=== PATIENT | female | born 1990 | race Caucasian/White ===

== ENCOUNTER 2022-09-14 01:35 | Outpatient (CLI) | payer BC, SELFPAY ==
[2022-09-14 08:50] LABS: HCG Quant, Pregnancy < 1 mIU/mL (1-3)
== END 2022-09-14 01:36 | disposition home or self-care (01) ==
LOC: LBO 01:35
PROVIDERS: Visit Provider Obstetrics & Gynecology
DX: N97.9 Female infertility, unspecified (principal); Z32.00 Encounter for pregnancy test, result unknown
CPT/HCPCS: 36415; 84702

== ENCOUNTER 2023-03-27 07:27 | Outpatient (CLI) | payer BC, SELFPAY ==
[2023-04-01 09:35] LABS: Estradiol, Mass Spectrometry 29 pg/mL
== END 2023-03-27 07:28 | disposition home or self-care (01) ==
PROVIDERS: Visit Provider Obstetrics & Gynecology
DX: N97.9 Female infertility, unspecified (principal)
CPT/HCPCS: 36415; 82670; 82679

== ENCOUNTER 2023-07-03 14:51 | Outpatient (CLI) | payer BC, SELFPAY ==
[2023-07-03 12:46] LABS: Abs Immature Grans 0.03 10^3/uL (0.0-0.06); Absolute Basophil Count 0.04 10^3/uL (0.0-0.2); Absolute Eosinophil Count 0.27 10^3/uL (0.0-0.7); Absolute Lymphocyte Count 2.95 10^3/uL (1.2-3.4); Absolute Monocyte Count 0.43 10^3/uL (0.1-0.8); Absolute Neutrophil Count 6.52 10^3/uL (1.2-6.7); Basophils % 0.4; Eosinophils % 2.6; HCT 39.6 % (36.0-46.0); HGB 12.9 g/dL (11.2-15.7); Immature Grans % 0.3; Lymphocytes % 28.8; MCH 27.2 pg (27.0-33.0); MCHC 32.6 % (32.0-36.0); MCV 83 fL (80-95); MPV 10.9 fL (8.0-11.0); Monocytes % 4.2; Neutrophils % 63.7; Platelet Count 304 10^3/uL (130-400); RBC 4.75 10^6/uL (3.93-5.22); RDW 13.2 % (11.7-14.6); RDW-SD 40.6 fL; WBC 10.24 10^3/uL (4.4-10.8)
[2023-07-03 12:56] LABS: Hemoglobin A1C 5.5 % (<5.7)
[2023-07-03 13:15] LABS: ALT 21 U/L (14-59); AST 18 U/L (15-37); Albumin 3.4 g/dL (3.4-5.0); Alkaline Phosphatase 69 U/L (46-116); BUN 15 mg/dL (7-18); Bilirubin, Total 0.1 mg/dL (0.2-1.0); CREATININE 0.8 mg/dL (0.55-1.02); Calcium 9.3 mg/dL (8.5-10.1); Calculated LDL 133 mg/dL (<100); Chloride 103 mmol/L (98-107); Cholesterol 223 mg/dL (<200); Estimated GFR 98.48 (mL/min/1.73m2); Ferritin 46 ng/mL (8-252); Glucose 118 mg/dL (74-106); HDL Cholesterol 44 mg/dL (40-60); Potassium 3.6 mmol/L (3.5-5.1); Sodium 136 mmol/L (136-145); TSH (W/Ref FT4) 1.42 uIU/mL (0.36-3.74); Total Protein 7.6 g/dL (6.4-8.2); Triglyceride 232 mg/dL (<150)
[2023-07-03 22:58] LABS: CRP, High Sensitivity >15.00 mg/L (See Note)
[2023-07-04 11:32] LABS: Lab Add On Test DONE
[2023-07-04 12:02] LABS: C-Reactive Protein 1.87 mg/dL (0.0-0.3)
== END 2023-07-03 14:52 | disposition home or self-care (01) ==
LOC: LBO 14:53
PROVIDERS: PCP Nurse Practitioner Family; Visit Provider Nurse Practitioner Family
DX: Z76.89 Persons encountering health services in other specified circumstances (principal); Z87.2 Personal history of diseases of the skin and subcutaneous tissue
CPT/HCPCS: 36415; 80053; 80061; 86141; 82728; 83036; 84443; 85025; 86140

== ENCOUNTER 2024-01-06 12:53 | Outpatient (CLI) | payer BC, SELFPAY ==
[2024-01-06 12:43] LABS: C-Reactive Protein 1.24 mg/dL (<or=0.5)
== END 2024-01-06 12:54 | disposition home or self-care (01) ==
LOC: LBO 12:55
PROVIDERS: PCP Nurse Practitioner Family; Visit Provider Nurse Practitioner Family
DX: Z87.2 Personal history of diseases of the skin and subcutaneous tissue (principal)
CPT/HCPCS: 36415; 86140

== ENCOUNTER 2024-03-18 01:47 | Outpatient (CLI) | payer BC, SELFPAY ==
[2024-03-18 15:43] LABS: C-Reactive Protein 1.04 mg/dL (<or=0.5)
== END 2024-03-18 01:48 | disposition home or self-care (01) ==
PROVIDERS: PCP Nurse Practitioner Family; Visit Provider Nurse Practitioner Family
DX: Z87.2 Personal history of diseases of the skin and subcutaneous tissue (principal)
CPT/HCPCS: 36415; 86140

== ENCOUNTER 2024-07-17 11:59 | Outpatient (CLI) | payer BC, SELFPAY ==
[2024-07-17 11:28] LABS: Abs Immature Grans 0.02 10^3/uL (0.0-0.06); Absolute Basophil Count 0.06 10^3/uL (0.0-0.2); Absolute Eosinophil Count 0.22 10^3/uL (0.0-0.7); Absolute Lymphocyte Count 3.44 10^3/uL (1.2-3.4); Absolute Monocyte Count 0.58 10^3/uL (0.1-0.8); Absolute Neutrophil Count 5.45 10^3/uL (1.2-6.7); Basophils % 0.6 %; Eosinophils % 2.3 %; HCT 42.8 % (36.0-46.0); HGB 13.7 g/dL (11.2-15.7); Immature Grans % 0.2 %; Lymphocytes % 35.2 %; MCH 27.5 pg (27.0-33.0); MCV 86 fL (80-95); MPV 10.8 fL (8.0-11.0); Monocytes % 5.9 %; Neutrophils % 55.8 %; Platelet Count 295 10^3/uL (130-400); RBC 4.98 10^6/uL (3.93-5.22); RDW 12.9 % (11.7-14.6); RDW-SD 40.4 fL; WBC 9.77 10^3/uL (4.4-10.8)
[2024-07-17 11:59] LABS: D-Dimer 332 ng/mlFEU (<500)
[2024-07-17 12:09] LABS: ALT 19 U/L (14-59); AST 19 U/L (15-37); Albumin 3.4 g/dL (3.4-5.0); Alkaline Phosphatase 68 U/L (46-116); Anion Gap 8.4 mmol/L (3-11); BUN 20 mg/dL (7-18); C-Reactive Protein 1.54 mg/dL (<or=0.5); CO2 25.6 mmol/L (21.0-32.0); CREATININE 0.8 mg/dL (0.55-1.02); Calcium 9.5 mg/dL (8.5-10.1); Chloride 105 mmol/L (98-107); Estimated GFR 97.87 (mL/min/1.73m2); Glucose 84 mg/dL (74-106); Potassium 3.8 mmol/L (3.5-5.1); Sodium 139 mmol/L (136-145); Total Protein 7.9 g/dL (6.4-8.2)
== END 2024-07-17 12:00 | disposition home or self-care (01) ==
LOC: LBO 12:00
PROVIDERS: PCP Nurse Practitioner Family; Visit Provider Nurse Practitioner Family
DX: R05.9 Cough, unspecified (principal); J45.31 Mild persistent asthma with (acute) exacerbation
CPT/HCPCS: 36415; 80053; 85025; 85379; 86140

== ENCOUNTER 2024-07-17 12:04 | Outpatient (CLI) | payer BC, SELFPAY ==
--- NOTE | 2024-07-17 11:15 | DI.RAD_ITS ---
Exam(s) XR CHEST 2V PA LATERAL EXAM: XR CHEST 2V PA LATERAL CLINICAL HISTORY: cough, eval for pneumonia,r05.9. TECHNIQUE: 2D digital imaging was performed. COMPARISON: No exams were available for comparison FINDINGS: 2 views: Heart size is normal. The mediastinum is not widened. Lungs are clear. No infiltrates nor pleural effusions. IMPRESSION: No acute pulmonary findings. DATA REPOSITORY: RADIATION DOSE DELIVERED:
== END 2024-07-17 12:24 ==
LOC: DI 12:04
PROVIDERS: PCP Nurse Practitioner Family; Visit Provider Nurse Practitioner Family
DX: R05.9 Cough, unspecified (principal)
CPT/HCPCS: 71046

== ENCOUNTER 2024-09-29 17:09 | Outpatient (REF) | payer BC, SELFPAY ==
[2024-09-29 15:54] LABS: Abs Immature Grans 0.01 10^3/uL (0.0-0.06); Absolute Basophil Count 0.04 10^3/uL (0.0-0.2); Absolute Eosinophil Count 0.16 10^3/uL (0.0-0.7); Absolute Lymphocyte Count 2.55 10^3/uL (1.2-3.4); Absolute Monocyte Count 0.38 10^3/uL (0.1-0.8); Basophils % 0.5 %; HCT 40.8 % (36.0-46.0); HGB 13.1 g/dL (11.2-15.7); Immature Grans % 0.1 %; Lymphocytes % 32.1 %; MCH 27.3 pg (27.0-33.0); MCHC 32.1 % (32.0-36.0); MCV 85 fL (80-95); MPV 11.4 fL (8.0-11.0); Monocytes % 4.8 %; Neutrophils % 60.5 %; Platelet Count 261 10^3/uL (130-400); RBC 4.79 10^6/uL (3.93-5.22); RDW 12.4 % (11.7-14.6); RDW-SD 38.1 fL; WBC 7.94 10^3/uL (4.4-10.8)
[2024-09-29 16:16] LABS: ALT 24 U/L (14-59); AST 23 U/L (15-37); Albumin 3.7 g/dL (3.4-5.0); Alkaline Phosphatase 76 U/L (46-116); Anion Gap 6.8 mmol/L (3-11); BUN 14 mg/dL (7-18); Bilirubin, Total 0.23 mg/dL (0.2-1.0); C-Reactive Protein 1.51 mg/dL (<or=0.5); CO2 28.2 mmol/L (21.0-32.0); CREATININE 0.8 mg/dL (0.55-1.02); Calcium 9.1 mg/dL (8.5-10.1); Chloride 105 mmol/L (98-107); Estimated GFR 97.87 (mL/min/1.73m2); Glucose 109 mg/dL (74-106); Potassium 4.5 mmol/L (3.5-5.1); Sodium 140 mmol/L (136-145); TSH (W/Ref FT4) 1.53 uIU/mL (0.36-3.74); Total Protein 7.2 g/dL (6.4-8.2)
== END 2024-09-29 17:10 | disposition home or self-care (01) ==
LOC: NCHCN 17:09
PROVIDERS: Visit Provider Family Medicine
DX: R53.83 Other fatigue (principal)
CPT/HCPCS: 80053; 84443; 85025; 86140

== ENCOUNTER 2024-09-30 03:24 | Outpatient (CLI) | payer BC, SELFPAY ==
--- NOTE | 2024-09-30 | DI.RAD_ITS ---
Exam(s) XR CHEST 2V PA LATERAL EXAM: XR CHEST 2V PA LATERAL CLINICAL HISTORY: COUGH, R05.9 TECHNIQUE: 2D digital imaging was performed of the chest. Two images were obtained. PA and lateral views were obtained. COMPARISON: CR XR CHEST 2V PA LATERAL from 07/17/2024 FINDINGS: MEDIASTINUM: Normal. HEART: Normal. PULMONARY VASCULATURE: Normal. LUNGS: Clear. PLEURAL SPACE: No pleural effusion or pneumothorax. BONE:Within normal limits for the patient's age. OTHER FINDINGS:Normal. IMPRESSION: No acute pulmonary findings. DATA REPOSITORY: RADIATION DOSE DELIVERED:
== END 2024-09-30 03:44 ==
PROVIDERS: PCP Nurse Practitioner Family; Visit Provider Family Medicine
DX: R05.9 Cough, unspecified (principal)
CPT/HCPCS: 71046

== ENCOUNTER 2024-10-22 04:51 | Outpatient (CLI) | payer BC, SELFPAY ==
--- NOTE | 2024-10-27 16:15 | W.PFT ---
Date of service: 10/22/24 Time of Service: 12:59 Pulmonary Function Test Result Indications: Cough Interpretation Spirometry: No airflow limitation. Lung Volumes: Normal lung volumes Diffusion Capacity: Normal diffusion Airway Pressure: Normal airways resistance Impression Normal pulmonary function testing Clinical Correlation therefore is recommended.
== END 2024-10-22 04:52 | disposition home or self-care (01) ==
LOC: RT 04:51
PROVIDERS: PCP Nurse Practitioner Family; Visit Provider Student in an Organized Health Care Education/Training Program
DX: R05.9 Cough, unspecified (principal)
CPT/HCPCS: 94726; 94729; 94010

== ENCOUNTER 2024-12-31 18:18 | Outpatient (REF) | payer BC, SELFPAY ==
[2024-12-31 17:31] LABS: Abs Immature Grans 0.02 10^3/uL (0.0-0.06); Absolute Basophil Count 0.03 10^3/uL (0.0-0.2); Absolute Eosinophil Count 0.11 10^3/uL (0.0-0.7); Absolute Lymphocyte Count 2.75 10^3/uL (1.2-3.4); Absolute Monocyte Count 0.37 10^3/uL (0.1-0.8); Basophils % 0.4 %; Eosinophils % 1.6 %; HGB 13.4 g/dL (11.2-15.7); Immature Grans % 0.3 %; Lymphocytes % 38.8 %; MCH 27.6 pg (27.0-33.0); MCHC 31.9 % (32.0-36.0); MCV 86 fL (80-95); MPV 12.3 fL (8.0-11.0); Monocytes % 5.2 %; Neutrophils % 53.7 %; Platelet Count 255 10^3/uL (130-400); RBC 4.86 10^6/uL (3.93-5.22); RDW 12.9 % (11.7-14.6); RDW-SD 40.6 fL; WBC 7.08 10^3/uL (4.4-10.8)
[2024-12-31 17:51] LABS: Anion Gap 10.1 mmol/L (3-11); BUN 16 mg/dL (7-18); CO2 24.9 mmol/L (21.0-32.0); CREATININE 0.8 mg/dL (0.55-1.02); Calculated LDL 99 mg/dL (<100); Chloride 106 mmol/L (98-107); Cholesterol 165 mg/dL (<200); Estimated GFR 97.87 (mL/min/1.73m2); Glucose 78 mg/dL (74-106); HDL Cholesterol 48 mg/dL (>or=50); Potassium 4.2 mmol/L (3.5-5.1); Sodium 141 mmol/L (136-145); Triglyceride 91 mg/dL (<150)
[2024-12-31 18:03] LABS: C-Reactive Protein 0.87 mg/dL (<or=0.5)
[2025-01-06 14:59] LABS: Apolipoprotein B, Serum 95 mg/dL (48-124); Beta VLDL Cholesterol Not Detected mg/dL (<15); Beta VLDL Triglycerides Not Detected mg/dL (<15); Cholesterol, Total, CDC 164 mg/dL; Chylomicron Cholesterol Not Detected; Chylomicron Triglycerides Not Detected; HDL Cholesterol, CDC 41 mg/dL (>=50); LDL Cholesterol 84 mg/dL; LDL Triglycerides 52 mg/dL (<=50); Lp(a) Cholesterol 18 mg/dL (<5); LpX Not detected; Triglycerides, CDC 106 mg/dL; VLDL Cholesterol 21 mg/dL (<30); VLDL Triglycerides 32 mg/dL (<120)
== END 2024-12-31 18:19 | disposition home or self-care (01) ==
LOC: NCHCN 18:18
PROVIDERS: PCP Nurse Practitioner Family; Visit Provider Family Medicine
DX: E66.9 Obesity, unspecified (principal); Z68.26 Body mass index [BMI] 26.0-26.9, adult; Z13.220 Encounter for screening for lipoid disorders; K20.0 Eosinophilic esophagitis
CPT/HCPCS: 80048; 80061; 82172; 82664; 85025; 86140

== ENCOUNTER 2025-07-19 07:08 | Emergency (ER) | payer BC, SELFPAY ==
[2025-07-19 07:12] VITALS: BP 156/98; PULSE 70; RESP 16; TEMP 36.6; O2SAT 99
--- NOTE | 2025-07-19 07:17 | W.ED.GENAD ---
Discharge Plan Disposition Patient Disposition: Home Discharge Details Clinical Impression: Abrasion of scalp, Mild TBI (traumatic brain injury) Primary Care Provider: Vanessa Urban ED Provider: Vargas Washington Home Meds and New Rx's Prescriptions: Continued Dupixent Pen 300 mg/2 mL pen injector 300 mg subcut QWEEK albuterol sulfate 2.5 mg /3 mL (0.083 %) solution for nebulization 2.5 mg inhalation Q6H semaglutide (weight loss) 1.7 mg/0.75 mL pen injector 1.7 mg subcut QWEEK Qty: 3 0RF Rx Instructions: Week 13 through week 16: 1.7 mg once weekly desogestrel-ethinyl estradiol [Isibloom] 0.15-0.03 mg tablet 1 tab PO DAILY Qty: 168 3RF Rx Instructions: Takes continuously Discharge Instructions Additional Instructions: You were seen in the emergency department for your head strike. Your CAT scan was reassuring against any signs of bleeding in your head. As we discussed please gradually resume your normal activities. If you begin vomiting and do not stop please return to the emergency department. Please follow-up as needed next week with your primary care provider. For your pain please take medications as follows: 1. Take acetaminophen (Tylenol), 1,000 mg (two 500 mg tabs) every 6 hours [2. Take ibuprofen (Advil), 400 mg every 6 hours.] Discharge Data Discharge Date/Time-TO BE ENTERED AT DEPARTURE: 07/19/25 09:14 HPI General Date/Time Provider Initiated Documentation: 07/19/25 07:17. HPI Narrative: MDM Primary survey intact. Reassuring shock index. On secondary survey patient has superficial healing abrasion to top of head. In setting of her worsening headache patient and I discussed the risks and the benefits of CT head. Patient understood that risks of false positives and downstream testing. Following shared decision making I ordered a CT head to ensure patient did not have any intracranial trauma. She had no cervical spinal tenderness to suggest cervical spinal fracture. No chest strike nor shortness of breath to suggest pneumothorax so I did not order chest x-ray. No fevers to suggest meningitis. No vomiting to suggest encephalitis. Will treat pain with acetaminophen. No significant lacerations to suggest benefit from tetanus immunization. Per Nexus criteria, cervical CT not obtained. The patient had no c-spine midline tenderness, no evidence of intoxication, was AAOx3, had no focal neurological deficits, and no painful distracting injuries. 8:37 AM Patient had reassuring CT head without acute intracranial process. I met the patient. We discussed gradually increasing her activities. We discussed that if any of her activities cause her symptoms of headache or blurry vision that she should discontinue these. We discussed that she should return to the ED if she developed vomiting that did not stop. She understood her return indications and was discharged with an empiric trial of expectant outpatient management. HPI This is a patient with a history of head trauma presenting with symptoms following two incidents of head injury. The patient reports that the first incident occurred on the morning of 07/17/2025 when she was struck by a screen door that did not fully retract, causing significant pain but no loss of consciousness. The second incident occurred later that night when she hit her head on a sharp wooden shelf while standing up quickly, resulting in a bleeding wound that has since scabbed over. Following the second incident, she felt off and experienced significant pain at both injury sites, which was exacerbated by showering. She spent most of the following day resting due to these symptoms. On the night of 07/18/2025, she woke up at 1:00 AM with a severe headache, similar to those she experienced during a previous bout of spinal meningitis. The pain was intense, causing visual disturbances and nausea. She considered seeking emergency care but decided against it, took Advil, and managed to fall back asleep. Upon waking the next morning, she contacted her stepmother, a trauma nurse, who advised her to seek immediate medical attention. The patient reports no vomiting but continues to feel nauseous. She is not currently taking any blood thinners. The patient is on Dupixent, Wegovy, and control. Exam General: Well-appearing in no acute distress speaking in complete sentences. Head: Normocephalic. On the superior aspect of the patient's head there is an approximately 1 x 1 cm healing abrasion. Eye:[Pupils equal, round reactive to light.] Extraocular eye movements intact. No conjunctival injection. No scleral icterus. Ear, nose, mouth, throat: Grossly normal inspection. Normal voice, handling secretions normally. No hemotympanum bilaterally. Neck: Trachea midline. No midline cervical spinal tenderness. Cardiovascular: Well-perfused distal extremities. Respiratory: Nonlabored respiration. Gastrointestinal: Nondistended abdomen. Musculoskeletal: No edema. Moving all 4 extremities spontaneously. Skin: Normal for age and race, grossly normal temperature and turgor. No acute rash. Neurologic: Alert and appropriate, no apparent acute deficits. GCS 15. Psychiatric: Mood and manner are appropriate. Grooming and personal hygiene are appropriate. Related Data Home Medications ?Medication ?Instructions ?Recorded ?Confirmed albuterol sulfate 2.5 mg/3 mL 2.5 mg inhalation Q6H 05/22/23 07/19/25 (0.083 %) solution for nebulization dupilumab 300 mg/2 mL subcutaneous 300 mg subcut QWEEK 06/30/24 07/19/25 pen injector (Dupixent) semaglutide (weight loss) 1.7 1.7 mg (0.75 mL) subcut QWEEK #3 mL 12/25/24 07/19/25 mg/0.75 mL subcutaneous pen injector desogestrel 0.15 mg-ethinyl 1 tab PO DAILY #168 tabs 05/12/25 07/19/25 estradiol 0.03 mg tablet (Isibloom) Previous Rx's ?Medication ?Instructions ?Recorded semaglutide (weight loss) 1.7 1.7 mg (0.75 mL) subcut QWEEK #3 mL 12/25/24 mg/0.75 mL subcutaneous pen injector desogestrel 0.15 mg-ethinyl 1 tab PO DAILY #168 tabs 05/12/25 estradiol 0.03 mg tablet (Isibloom) Allergies Allergy/AdvReac Type Severity Reaction Status Date / Time tacrolimus Allergy Severe Skin Rash Verified 07/19/25 07:16 latex Allergy Hives Verified 07/19/25 07:16 Sulfa (Sulfonamide Allergy Diarrhea Verified 07/19/25 07:16 Antibiotics) bupropion AdvReac Severe Storey-Jose Verified 07/19/25 07:16 Syndrome-Toxic Epidermal Necrolysis Syndrome prednisone AdvReac Severe Psychosis Verified 07/19/25 07:16 diazepam AdvReac Intermediate Nausea Verified 07/19/25 07:16 fluoxetine AdvReac Intermediate Nausea Verified 07/19/25 07:16 Gadolinium-Containing AdvReac Intermediate Nausea Verified 07/19/25 07:16 Contrast Medi mirtazapine AdvReac Intermediate Nausea Verified 07/19/25 07:16 orphenadrine AdvReac Intermediate Nausea Verified 07/19/25 07:16 paroxetine AdvReac Intermediate Nausea Verified 07/19/25 07:16 clopidogrel AdvReac Nausea Verified 07/19/25 07:16 tegaderm Allergy Intermediate Skin Rash Uncoded 07/19/25 07:16 General Stated Complaint: HeadInjury JESS: 3 Course Vital Signs Vital signs: Vital Signs Temperature 36.6 C 07/19/25 07:12 Pulse 70 07/19/25 07:12 Respiratory Rate 16 07/19/25 07:12 Blood Pressure 156/98 H 07/19/25 07:12 Pulse Oximetry 99 07/19/25 07:12 Temperature 36.6 C 07/19/25 07:12 Pulse 70 07/19/25 07:12 Respiratory Rate 16 07/19/25 07:12 Blood Pressure 156/98 H 07/19/25 07:12 Pulse Oximetry 99 07/19/25 07:12 Oxygen Delivery Method Room Air 07/19/25 07:12 Oxygen Flow Rate 0 07/19/25 07:12 PFSH All Active Problems (Updated 07/19/25 @ 07:44 by Vargas Washington MD) Mild TBI (traumatic brain injury) (Acute) Abrasion of scalp (Acute) Cough (Acute) 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) From bupropion PCOS (polycystic ovarian syndrome) (Chronic) Female infertility (Chronic) IBS (irritable bowel syndrome) (Chronic) Obesity (BMI 30-39.9) (Chronic) Eosinophilic esophagitis (Chronic) Dysphagia (Chronic) Asthma (Chronic) Hyperlipidemia (Chronic) Generalized anxiety disorder (Chronic) ADHD (Chronic) Vulvodynia (Chronic) Allergic rhinitis (Chronic) Medical History Major depressive disorder SJS-TEN overlap syndrome (~2012) Surgical History S/P tonsillectomy S/P colonoscopy S/P dilation and curettage Hx of appendectomy Hx of section (01/11/21) Family History Mother No problems noted. Father No problems noted. Sister No problems noted. Sister Substance use disorder Daughter No problems noted. Maternal Grandfather No problems noted. Maternal Grandmother No problems noted. Paternal Grandfather Prostate cancer Paternal Grandmother No problems noted. 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 Pets and animals: Yes Sexually active: Yes Do you think of yourself as: bisexual Current gender identity: female What is your relationship status?: How often do you talk on the phone with friends or family?: three or more times per week How often do you get together with friends or relatives?: three or more times per week Do you belong to any clubs or organized social groups?: yes Panel score (0-1 are the most socially isolated patients): 3 What type of physical activity do you participate in: walking and bicycling Duration: 15-30 minutes/day Frequency: 3-4 times per week Allyssa/Uatsdin: Non congregational Seatbelt use: always Helmet use: Yes Drive intox or ride w/intox 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
[2025-07-19] MEDS: Acetaminophen 500 MG TAB 1000 MG PO (07:45)
--- NOTE | 2025-07-19 08:00 | DI.CT_ITS ---
Exam(s) CT HEAD WO EXAM: CT HEAD WO CLINICAL HISTORY: Head strike. TECHNIQUE: Imaging Protocol: Axial computed tomography images with coronal and sagittal reformatted images were created and reviewed COMPARISON: No exams were available for comparison FINDINGS: Ventricles and Extra axial spaces: Normal in size and morphology for the patient's age. Hemorrhage: None. Cerebral parenchyma: There is a normal bennett-white matter differentiation. Midline shift: None. Brainstem/Cerebellum: Normal. Calvarium: Normal. Visualized Paranasal sinuses/Mastoids: There are mucous retention cysts in the maxillary sinuses bilaterally. Soft Tissues: Unremarkable. IMPRESSION: No acute intracranial process. RADIATION DOSE DELIVERED: 920.03mGy.cm Total DLP DATA REPOSITORY: All CT scans at this facility are submitted to the National Radiology Data Registry (NRDR) Dose Index Registry (DIR) with the [employer] (ACR). RADIATION OPTIMIZATION: All CT scans at this facility use at least one of these dose optimization techniques: automated exposure control; mA and/or kV adjustment per patient size (includes targeted exams where dose is matched to clinical indication); or iterative reconstruction.
== END 2025-07-19 09:14 | disposition home or self-care (01) ==
PROVIDERS: Emergency Provider Emergency Medicine; PCP Nurse Practitioner Family
DX: S00.01XA Abrasion of scalp, initial encounter (principal); S06.890A Other specified intracranial injury without loss of consciousness, initial encounter; E78.5 Hyperlipidemia, unspecified; W22.09XA Striking against other stationary object, initial encounter; Y93.89 Activity, other specified; Y92.018 Other place in single-family (private) house as the place of occurrence of the external cause
CPT/HCPCS: 99284; 70450

== ENCOUNTER 2025-08-29 07:59 | Emergency (ER) | payer BC, SELFPAY ==
[2025-08-29 08:04] VITALS: BP 124/83; PULSE 76; RESP 18; TEMP 35.6; O2SAT 98
--- NOTE | 2025-08-29 08:45 | DI.RAD_ITS ---
Exam(s) XR HAND RT COMPLETE EXAM: XR HAND RT COMPLETE CLINICAL HISTORY: pain swelling 2nd mcp after lifting weights. TECHNIQUE: 2D digital imaging was performed. COMPARISON: No exams were available for comparison FINDINGS: 3 views No evidence of fracture or dislocation nor abnormal soft tissue densities. No osseous lesions nor erosions. No radiopaque foreign bodies. IMPRESSION: No acute osseous findings. DATA REPOSITORY: RADIATION DOSE DELIVERED:
[2025-08-29 09:33] VITALS: BP 135/75; PULSE 77; O2SAT 100
--- NOTE | 2025-08-29 09:42 | DI.VRAD_ITS ---
PROCEDURE INFORMATION: Exam: XR Right Hand Exam date and time: 08/29/2025 9:08 AM Age: 35 years old Clinical indication: Injury or trauma; Other: Pain swelling 2nd mcp after lifting weights; Sprain or strain; Hand; Right TECHNIQUE: Imaging protocol: Radiologic exam of the right hand. Views: 3 or more views. COMPARISON: No relevant prior studies available. FINDINGS: Bones/joints: Normal. Soft tissues: Normal. IMPRESSION: No acute findings. Dictated and Authenticated by: Lorrie Garcia MD. Orderin Remberto Sierra MD
--- NOTE | 2025-08-29 10:33 | ED.GENADUL_ITS ---
Discharge Plan Disposition Patient Disposition: Home Condition: Stable Discharge Details Clinical Impression: Sprain of MCP joint of hand Primary Care Provider: Vanessa Urban ED Provider: Rigo Sr Home Meds and New Rx's Prescriptions: Continued Dupixent Pen 300 mg/2 mL pen injector 300 mg subcut QWEEK albuterol sulfate 2.5 mg /3 mL (0.083 %) solution for nebulization 2.5 mg inhalation Q6H semaglutide (weight loss) 1.7 mg/0.75 mL pen injector 1.7 mg subcut QWEEK Qty: 3 0RF Rx Instructions: Week 13 through week 16: 1.7 mg once weekly desogestrel-ethinyl estradiol [Isibloom] 0.15-0.03 mg tablet 1 tab PO DAILY Qty: 168 3RF Rx Instructions: Takes continuously Discharge Instructions Instructions: Finger Sprain ED Additional Instructions: Please take ibuprofen 600 mg by mouth every 6-8 hours as needed for pain for the next few days. Use splint over the next 1 week. Should pain persist, additional outpatient diagnostic testing and treatment may be necessary. Please follow-up with your primary care physician. Please follow-up with an orthopedic hand specialist. Call for an appointment. Return to the emergency department immediately for any worsening or new concerning symptoms. Stand Alone Forms: Portal Information HPI General Mode of arrival: ambulatory . Date/Time Provider Initiated Documentation: 08/29/25 08:11 . Limitations to Documentation: no limitations . Information obtained by: patient . HPI Narrative: HISTORY OF PRESENT ILLNESS This is a 35-year-old female with a history of Storey-Jose syndrome (SJS) presenting with hand pain. On 08/27/2025, during a bicep workout, she felt an unusual popping sensation in her left hand, 2nd MCP, which was not immediately painful. She continued her exercise regimen, including an elliptical workout, without any noticeable issues. However, she began experiencing significant pain in the same area on 08/28/2025, which has progressively worsened and now radiates up her arm. The pain was severe enough to disrupt her sleep last night. She also reports bruising in the affected area. 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 She attempted to manage the pain with Advil and Tylenol yesterday, but these were ineffective. She took another dose of ibuprofen this morning. She has undergone numerous scans this year, including two chest x-rays and two CT scans, and expresses reluctance to undergo further imaging. The patient also mentions concurrent issues with her rotator cuff and back. Related Data Home Medications ?Medication ?Instructions ?Recorded ?Confirmed albuterol sulfate 2.5 mg/3 mL 2.5 mg inhalation Q6H 08/29/25 (0.083 %) solution for nebulization dupilumab 300 mg/2 mL subcutaneous 300 mg subcut QWEEK 06/30/24 08/29/25 pen injector (Dupixent) semaglutide (weight loss) 1.7 1.7 mg (0.75 mL) subcut QWEEK #3 mL 12/25/24 08/29/25 mg/0.75 mL subcutaneous pen injector desogestrel 0.15 mg-ethinyl 1 tab PO DAILY #168 tabs 0 05/12/25 08/29/25 estradiol 0.03 mg tablet (Isibloom) Previous Rx's ?Medication ?Instructions ?Recorded semaglutide (weight loss) 1.7 1.7 mg (0.75 mL) subcut QWEEK #3 mL 12/25/24 mg/0.75 mL subcutaneous pen injector desogestrel 0.15 mg-ethinyl 1 tab PO DAILY #168 tabs 0 05/12/25 estradiol 0.03 mg tablet (Isibloom) Allergies Allergy/AdvReac Type Severity Reaction Status Date / Time tacrolimus Allergy Severe Skin Rash Verified 08/29/25 08:06 latex Allergy Hives Verified 08/29/25 08:06 Sulfa (Sulfonamide Allergy Diarrhea Verified 08/29/25 08:06 Antibiotics) bupropion AdvReac Severe Storey-Jose Verified 08/29/25 08:06 Syndrome-Toxic Epidermal Necrolysis Syndrome prednisone AdvReac Severe Psychosis Verified 08/29/25 08:06 diazepam AdvReac Intermediate Nausea Verified 08/29/25 08:06 fluoxetine AdvReac Intermediate Nausea Verified 08/29/25 08:06 Gadolinium-Containing AdvReac Intermediate Nausea Verified 08/29/25 08:06 Contrast Medi mirtazapine AdvReac Intermediate Nausea Verified 08/29/25 08:06 orphenadrine AdvReac Intermediate Nausea Verified 08/29/25 08:06 paroxetine AdvReac Intermediate Nausea Verified 08/29/25 08:06 clopidogrel AdvReac Nausea Verified 08/29/25 08:06 tegaderm Allergy Intermediate Skin Rash Uncoded 08/29/25 08:06 General Stated Complaint: Orthopedic JESS: 4 Review of Systems All systems reviewed & are unremarkable except as noted in HPI and below Musculoskeletal Musculoskeletal: Reports as per HPI Exam Cardio Rate: regular rate and not tachycardic Rhythm: regular rhythm Neuro General: patient alert, patient awake and tone normal Extrem Left upper extremity: hand Details: neuromotor exam normal, neurosensory exam normal, tenderness Location: of the 2nd digit Location: at the MCP joint, vascular exam Details: radial pulse present and swelling Location: of the 2nd digit Location: at the MCP joint; no unusual warmth Course Vital Signs Vital signs: Vital Signs Temperature 35.6 C L 08/29/25 08:04 Pulse 76 08/29/25 08:04 Respiratory Rate 18 08/29/25 08:04 Blood Pressure 124/83 08/29/25 08:04 Pulse Oximetry 98 08/29/25 08:04 Temperature 35.6 C L 08/29/25 08:04 Temperature Source Temporal Artery Scan 08/29/25 08:04 Pulse 77 08/29/25 09:33 Respiratory Rate 18 08/29/25 08:04 Blood Pressure 135/75 08/29/25 09:33 Blood Pressure Mean 95 08/29/25 09:33 Pulse Oximetry 100 08/29/25 09:33 Oxygen Delivery Method Room Air 08/29/25 09:33 Oxygen Flow Rate 0 08/29/25 09:33 Medical Decision Making ASSESSMENT AND PLAN Initial Assessment: 35-year-old female here with right second MCP pain following a popping sensation during weight lifting. Pain radiates up the arm and worsened over time. Differential Diagnosis: - Flexor sprain: Possible ligament injury. - Avulsion fracture ED Course: - Right hand x-ray interpreted by radiology: No acute osseous findings - Volar splint applied with fingers in position of comfort slight flexion. - Usual and customary discharge instructions were reviewed with the patient. Clinical Impression: Second digit flexor ligament sprain versus disruption of A1 gerard Follow-Up: -Plan for outpatient follow-up with PCP and hand specialist as needed Patient Education: Rest hand, avoid strenuous activities, continue ibuprofen This document was written with the assistance of BERNADETTE Mays. The patient consented to its use. 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) From bupropion PCOS (polycystic ovarian syndrome) (Chronic) Female infertility (Chronic) IBS (irritable bowel syndrome) (Chronic) Obesity (BMI 30-39.9) (Chronic) Eosinophilic esophagitis (Chronic) Dysphagia (Chronic) Asthma (Chronic) Hyperlipidemia (Chronic) Generalized anxiety disorder (Chronic) ADHD (Chronic) Vulvodynia (Chronic) Allergic rhinitis (Chronic) Medical History Major depressive disorder SJS-TEN overlap syndrome (~2012) Surgical History S/P tonsillectomy S/P colonoscopy S/P dilation and curettage Hx of appendectomy Hx of section (01/11/21) Family History Mother No problems noted. Father No problems noted. Sister No problems noted. Sister Substance use disorder Daughter No problems noted. Maternal Grandfather No problems noted. Maternal Grandmother No problems noted. Paternal Grandfather Prostate cancer Paternal Grandmother No problems noted. 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 Pets and animals: Yes Sexually active: Yes Do you think of yourself as: bisexual Current gender identity: female What is your relationship status?: How often do you talk on the phone with friends or family?: three or more times per week How often do you get together with friends or relatives?: three or more times per week Do you belong to any clubs or organized social groups?: yes Panel score (0-1 are the most socially isolated patients): 3 What type of physical activity do you participate in: walking and bicycling Duration: 15-30 minutes/day Frequency: 3-4 times per week Allyssa/Episcopal: Non yarsanism Seatbelt use: always Helmet use: Yes Drive intox 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
[2025-08-29 11:00] VITALS: BP 116/77; PULSE 81; RESP 16; O2SAT 98
== END 2025-08-29 11:01 | disposition home or self-care (01) ==
PROVIDERS: Emergency Provider Student in an Organized Health Care Education/Training Program; PCP Nurse Practitioner Family
DX: S63.651A Sprain of metacarpophalangeal joint of left index finger, initial encounter (principal); X50.0XXA Overexertion from strenuous movement or load, initial encounter; Y93.B3 Activity, free weights
CPT/HCPCS: 99283 ×2; 29125; 73130

== ENCOUNTER 2025-08-30 13:25 | Outpatient (REF) | payer BC, SELFPAY ==
[2025-08-30 15:25] LABS: ESR 16 mm/hr (0-20)
[2025-08-30 15:38] LABS: C-Reactive Protein 0.66 mg/dL (<=0.50)
== END 2025-08-30 13:26 | disposition home or self-care (01) ==
LOC: NCHCN 13:25
PROVIDERS: PCP Nurse Practitioner Family; Visit Provider Family Medicine
DX: Z82.61 Family history of arthritis (principal); L51.3 Stevens-Johnson syndrome-toxic epidermal necrolysis overlap syndrome
CPT/HCPCS: 85652; 86200; 86038; 86140; 86431

== ENCOUNTER 2025-09-01 08:08 | Emergency (ER) | payer BC, SELFPAY ==
[2025-09-01 08:11] VITALS: BP 140/84; PULSE 74; RESP 16; TEMP 36.6; O2SAT 99
--- NOTE | 2025-09-01 10:15 | W.ED.GENAD ---
Discharge Plan Disposition Patient Disposition: Home Condition: Stable Discharge Details Clinical Impression: Hand pain, right Primary Care Provider: Unknown,Unknown ED Provider: Frannie Kiran Home Meds and New Rx's Prescriptions: No Action Dupixent Pen 300 mg/2 mL pen injector 300 mg subcut QWEEK albuterol sulfate 2.5 mg /3 mL (0.083 %) solution for nebulization 2.5 mg inhalation Q6H semaglutide (weight loss) 1.7 mg/0.75 mL pen injector 1.7 mg subcut QWEEK Qty: 3 0RF Rx Instructions: Week 13 through week 16: 1.7 mg once weekly desogestrel-ethinyl estradiol [Isibloom] 0.15-0.03 mg tablet 1 tab PO DAILY Qty: 168 3RF Rx Instructions: Takes continuously Discharge Instructions Instructions: Hand Pain (DC) Additional Instructions: Please follow-up with orthopedics as discussed by Dr. Willams. You may call the clinic [phone]) on SATURDAY if not improved. Please wear the splint as needed for comfort. RICE procedures, Please take Tylenol or Ibuprofen with food every 4-6 hours as needed for pain and swelling. Follow up with primary care provider in 3-5 days. Return to ED sooner if any worsening or concerns. Stand Alone Forms: Portal Information Referrals: Antwan Willams MD [ [facility] STAFF PHYSICIAN, Orthopaedic Surgical] Referral Note: Please call for an appointment Discharge Data Discharge Date/Time-TO BE ENTERED AT DEPARTURE: 09/01/25 16:32 HPI <KAYLA Talbot - Last Filed: 09/02/25 15:56> General Date/Time Provider Initiated Documentation: 09/01/25 08:09. HPI Narrative: This 35-year-old female with history of Felix Jose syndrome presents with report right hand pain for second digit. She states she injured her hand on 01 September. She hyperextended it while lowering a weight to the floor. She felt instant pain and was having trouble extending her finger. She states the pain has increased despite wearing a splint which was placed during her last visit. She was told there was no fracture this is likely a tendon injury. She has not been able to follow-up with orthopedics which concerned her and given level of pain she presents for reassessment. Denies chance of or any additional injury. Has taken Motrin and Tylenol without relief of her pain at this time. Related Data Home Medications ?Medication ?Instructions ?Recorded ?Confirmed albuterol sulfate 2.5 mg/3 mL 2.5 mg inhalation Q6H 05/22/23 09/01/25 (0.083 %) solution for nebulization dupilumab 300 mg/2 mL subcutaneous 300 mg subcut QWEEK 06/30/24 09/01/25 pen injector (Dupixent) semaglutide (weight loss) 1.7 1.7 mg (0.75 mL) subcut QWEEK #3 mL 12/25/24 09/01/25 mg/0.75 mL subcutaneous pen injector desogestrel 0.15 mg-ethinyl 1 tab PO DAILY #168 tabs 05/12/25 09/01/25 estradiol 0.03 mg tablet (Isibloom) Previous Rx's ?Medication ?Instructions ?Recorded semaglutide (weight loss) 1.7 1.7 mg (0.75 mL) subcut QWEEK #3 mL 12/25/24 mg/0.75 mL subcutaneous pen injector desogestrel 0.15 mg-ethinyl 1 tab PO DAILY #168 tabs 05/12/25 estradiol 0.03 mg tablet (Isibloom) Allergies Allergy/AdvReac Type Severity Reaction Status Date / Time tacrolimus Allergy Severe Skin Rash Verified 09/01/25 08:17 latex Allergy Hives Verified 09/01/25 08:17 Sulfa (Sulfonamide Allergy Diarrhea Verified 09/01/25 08:17 Antibiotics) bupropion AdvReac Severe Storey-Jose Verified 09/01/25 08:17 Syndrome-Toxic Epidermal Necrolysis Syndrome prednisone AdvReac Severe Psychosis Verified 09/01/25 08:17 diazepam AdvReac Intermediate Nausea Verified 09/01/25 08:17 fluoxetine AdvReac Intermediate Nausea Verified 09/01/25 08:17 Gadolinium-Containing AdvReac Intermediate Nausea Verified 09/01/25 08:17 Contrast Medi mirtazapine AdvReac Intermediate Nausea Verified 09/01/25 08:17 orphenadrine AdvReac Intermediate Nausea Verified 09/01/25 08:17 paroxetine AdvReac Intermediate Nausea Verified 09/01/25 08:17 clopidogrel AdvReac Nausea Verified 09/01/25 08:17 tegaderm Allergy Intermediate Skin Rash Uncoded 09/01/25 08:17 General Stated Complaint: Orthopedic JESS: 4 Exam <KAYLA Talbot - Last Filed: 09/02/25 15:56> Narrative Exam Narrative: Swelling and tenderness noted to the palmar and dorsal aspect of the hand overlying the MCP joint, she has diminished flexion secondary to pain, functionally she has diminished extension she is neurovascularly intact there is bruising noted to the palmar aspect overlying the MCP joint no tenderness to wrist remainder of hand. No crepitus or evidence of infection Course <KAYLA Talbot Last Filed: 09/02/25 15:56> Vital Signs Vital signs: Vital Signs Temperature 36.6 C 09/01/25 08:11 Pulse 74 09/01/25 08:11 Respiratory Rate 16 09/01/25 08:11 Blood Pressure 140/84 09/01/25 08:11 Pulse Oximetry 99 09/01/25 08:11 Temperature 36.6 C 09/01/25 08:11 Temperature Source Oral 09/01/25 08:11 Pulse 74 09/01/25 08:11 Respiratory Rate 16 09/01/25 08:11 Blood Pressure 140/84 09/01/25 08:11 Blood Pressure Position Sitting 09/01/25 08:11 Pulse Oximetry 99 09/01/25 08:11 Oxygen Delivery Method Room Air 09/01/25 08:11 Oxygen Flow Rate 0 09/01/25 08:11 Pain Level 9 09/01/25 08:20 Medical Decision Making <KAYAL Talbot Last Filed: 09/02/25 15:56> Results reviewed x-ray of right hand from prior evaluation on 08 29 without acute abnormality, pending MRI Patient presenting with increasing pain overlying left MCP joint despite Motrin and Tylenol. Orthopedics was unable to see her at [place] so she presents here for reassessment. We did not have orthopedics services on-call initially so I called [facility], pending return call, I did speak with our orthopedist who is in the office and graciously recommended an MRI and without significant surgical abnormality he is willing to follow-up in the office. MRI was ordered however there is a significant delay as they are at capacity for the day. This certainly is nonemergent, but deemed helpful from orthopedics secondary to triage orthopedic facility. In the interim orthopedist at [facility] Dr. Leo returned call and feels like patient needs follow-up with them for likely extensor tendon injury. He will place her on the list for follow-up. Patient is still pending MRI at this time. She has a splint at home. Patient will be made aware that our orthopedist can follow-up unless there is a significant extensor tendon injury in which case she will need hand surgery at [facility] for further assessment. care transitioned to Frannie Kiran pending MRI. <Frannie Kiran NP - Last Filed: 09/01/25 19:11> Medical Records Medical records narrative: 1555: SJ: Care assumed rom provider Lavinia Ley pending MRI and dispo. Please see heir previous HPI and PE. Dr. Willams here to eval patient, he states she can be discharged with follow up in the clinic on Saturday. Patient discharged from department in hemodynamically stable condition. This text was generated using [employer] dictation system, please disregard any oddities of phrase or misspellings. 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) From bupropion PCOS (polycystic ovarian syndrome) (Chronic) Female infertility (Chronic) IBS (irritable bowel syndrome) (Chronic) Obesity (BMI 30-39.9) (Chronic) Eosinophilic esophagitis (Chronic) Dysphagia (Chronic) Asthma (Chronic) Hyperlipidemia (Chronic) Generalized anxiety disorder (Chronic) ADHD (Chronic) Vulvodynia (Chronic) Allergic rhinitis (Chronic) Medical History Major depressive disorder SJS-TEN overlap syndrome (~2012) Surgical History S/P tonsillectomy S/P colonoscopy S/P dilation and curettage Hx of appendectomy Hx of section (01/11/21) Family History Mother No problems noted. Father No problems noted. Sister No problems noted. Sister Substance use disorder Daughter No problems noted. Maternal Grandfather No problems noted. Maternal Grandmother No problems noted. Paternal Grandfather Prostate cancer Paternal Grandmother No problems noted. 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 Pets and animals: Yes Sexually active: Yes Do you think of yourself as: bisexual Current gender identity: female What is your relationship status?: How often do you talk on the phone with friends or family?: three or more times per week How often do you get together with friends or relatives?: three or more times per week Do you belong to any clubs or organized social groups?: yes Panel score (0-1 are the most socially isolated patients): 3 What type of physical activity do you participate in: walking and bicycling Duration: 15-30 minutes/day Frequency: 3-4 times per week Allyssa/Advent: Non taoism Seatbelt use: always Helmet use: Yes 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
[2025-09-01 10:46] VITALS: BP 107/76; PULSE 78; O2SAT 100
--- NOTE | 2025-09-01 15:39 | W.ORTHOCONSU ---
Date of service: 09/01/25 Time of Service: 14:30 History of Present Illness History of Present Illness Chief Complaint: Right Index Finger Pain/Swelling Narrative: Diamond is an active 35-year-old female who developed some pain and swelling about her right index finger about 5 or so days ago, Saturday. She was working out lifting some weights when she released the weight on the floor and did feel something pop in the palm side of her right index finger at the level of the A1 gerard. She had some mild pain at the time but was able to still use the hand fully. However, later that evening she started developing stiffness and swelling and pain with attempted range of motion of the finger. She is seen initially in the emergency department declined a splint with negative x-rays. However, since that time she feels that symptoms have worsened where she still is unable to fully make a fist and has difficulty with extending the finger. She denies numbness or tingling. She denies any skin changes. She does report swelling. She is right-hand dominant. 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 It is very unusual. My suspicion is that this is reactive in nature. She did have this injury while exercising that may have torn or stretched something that caused a reactive scenario by her right index finger. She does not have any penetrating trauma. She does not have any overt signs of infection such as fever, chills, malaise, redness, fusiform swelling. At this point I recommend that she continue to follow it. I did offer flexor tendon sheath evacuation surgically although I do not think this is completely necessary at this point. I recommend that she works on active assisted flexion and extension of the digit. She should work on some gentle massage techniques. She should utilize high dose anti-inflammatories topically and systemically. If she worsens or develops any restriction in range of motion, redness, warmth or ill feelings, she should return the emergency department. Otherwise she should call the office on Rick if she still has not completely improved. 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) From bupropion PCOS (polycystic ovarian syndrome) (Chronic) Female infertility (Chronic) IBS (irritable bowel syndrome) (Chronic) Obesity (BMI 30-39.9) (Chronic) Eosinophilic esophagitis (Chronic) Dysphagia (Chronic) Asthma (Chronic) Hyperlipidemia (Chronic) Generalized anxiety disorder (Chronic) ADHD (Chronic) Vulvodynia (Chronic) Allergic rhinitis (Chronic) Medical History Major depressive disorder SJS-TEN overlap syndrome (~2012) Surgical History S/P tonsillectomy S/P colonoscopy S/P dilation and curettage Hx of appendectomy Hx of section (01/11/21) Family History Mother No problems noted. Father No problems noted. Sister No problems noted. Sister Substance use disorder Daughter No problems noted. Maternal Grandfather No problems noted. Maternal Grandmother No problems noted. Paternal Grandfather Prostate cancer Paternal Grandmother No problems noted. 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 Pets and animals: Yes Sexually active: Yes Do you think of yourself as: bisexual Current gender identity: female What is your relationship status?: How often do you talk on the phone with friends or family?: three or more times per week How often do you get together with friends or relatives?: three or more times per week Do you belong to any clubs or organized social groups?: yes Panel score (0-1 are the most socially isolated patients): 3 What type of physical activity do you participate in: walking and bicycling Duration: 15-30 minutes/day Frequency: 3-4 times per week Allyssa/Episcopalian: Non sabianist Seatbelt use: always Helmet use: Yes 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 There is significant pain to palpation about the A1 gerard region and the flexor tendon just adjacent to it. No significant pain to palpation over the middle phalanx or the distal phalanx flexor tendon sheath, may be mild at most. She holds the finger in a relatively neutral position. There is no fusiform swelling. There is no redness. There is no defect in the skin or signs of laceration or skin abrasion. She is able to actively flex the finger. Individually testing the flexor tendons, FDS and FDP is intact. EDC is intact. She is able to bring the finger down towards the palm although not completely to the palm. She is also able to actively extend the finger although lacking about 15 to 20 degrees of terminal extension. No crepitus. No significant pain with palpation of the dorsal side of the finger along the metacarpal or proximal phalanx. Results Last Vital Signs Temp 36.6 C 09/01/25 08:11 Pulse 78 09/01/25 10:46 Resp 16 09/01/25 08:11 BP 107/76 09/01/25 10:46 Pulse Ox 100 09/01/25 10:46 Imaging Imaging Studies: MRI of the right hand shows notable swelling about the index finger ray. This is most over the palmar aspect adjacent to the flexor tendon and around the flexor tendon in the palm and extending up the finger. The majority of the swelling is located in the palm and into the proximal phalanx. There still is some swelling around the flexor tendon down distally into the finger as well. There also is some fluid collection deep to the flexor tendon adjacent to the index finger MCP joint. There is no abnormal bone marrow signal changes. There is no sign of occult fracture. I do not see any sign of significant ligamentous or tendon rupture.
--- NOTE | 2025-09-01 16:15 | DI.MRI_ITS ---
Exam(s) MR UPPER EXTREMITY RT WO EXAM: MR UPPER EXTREMITY RT WO CLINICAL HISTORY: right 2nd digit/hand pain, dec extension, pain mcp. TECHNIQUE: Multiplanar multisequence MRI was performed. COMPARISON: Plain films of the hand September 16 FINDINGS: BONES: There is no fracture or contusion pattern. JOINTS: There is a small joint effusion at the 2nd metacarpophalangeal joint. TENDONS: Flexors: There is fluid around the flexor digitorum tendon into the 2nd finger at the level of the distal metacarpal and proximal phalanx. On the axial images, there is of probable small focal tear seen at the level of the head of the proximal phalanx of the index finger. Extensors: There is some fluid around the extensor digitorum tendon to the index finger at the level of the MCP joint but no discrete tear. Ligaments: Collateral ligaments appear intact. MUSCLES: Unremarkable. Carpal tunnel: Tendons and median nerve are unremarkable on this noncontrast examination. SOFT TISSUES: Soft tissue edema surrounding the 2nd metacarpophalangeal joint and extending along the proximal phalanx of the index finger and into the webspace between the 2nd and 3rd fingers. No drainable collection. IMPRESSION: No evidence of fracture. Soft tissue edema around the 2nd metacarpophalangeal joint and proximal phalanx. Edema around the flexor and extensor tendons as well as small joint effusion. Small focal tear involving the flexor tendon. The extensor tendon appears intact. The preliminary [facility] report was reviewed. DATA REPOSITORY:
--- NOTE | 2025-09-01 16:29 | DI.[facility]_ITS ---
PROCEDURE INFORMATION: Exam: MR Right Upper Extremity Other Than Joint Without Contrast; Hand Exam date and time: 09/01/2025 3:45 PM Age: 35 years old Clinical indication: Pain, mostly around index finger mcp joint, flexion deformity TECHNIQUE: Imaging protocol: MR of the right upper extremity without contrast. Exam focused on the hand. COMPARISON: CR XR HAND RT COMPLETE 08/29/2025 9:08 AM FINDINGS: Bones/joints: The joint spaces are normally aligned. A small effusion involves the 2nd metacarpophalangeal joint. Joint fluid is otherwise within physiologic limits. The bone marrow is normal in signal. The cortices are preserved. Collateral ligaments of digits: Unremarkable. No evidence of tear. Flexor compartment tendons: There is small fluid in the 2nd flexor digitorum tendon sheath at the level of the metacarpal distally and proximal phalanx. The tendon itself is intact, as are the other flexor tendons. Extensor compartment tendons: Unremarkable. No evidence of tear. Soft tissues: Mild subcutaneous soft tissue edema is present over the volar and dorsal aspects of the proximal hand at the level of the 2nd metacarpal. This has mild circumferential extension about the proximal aspect of the 2nd finger and in the webspace between the 2nd and 3rd fingers. No discrete soft tissue collection is evident. IMPRESSION: 1. Mild soft tissue edema as described, including about the base of the 2nd finger without discrete collection. 2. Small fluid in the 2nd flexor digitorum tendon sheath at the level of the metacarpal distally and proximal phalanx, suggesting tenosynovitis. 3. Small nonspecific effusion of the 2nd metacarpophalangeal joint. Dictated and Authenticated by: Bhargav Wheeler MD. Orderin Jil Kate MD
== END 2025-09-01 16:32 | disposition home or self-care (01) ==
PROVIDERS: Emergency Provider Registered Nurse Emergency
DX: M79.641 Pain in right hand (principal)
CPT/HCPCS: 99283; 99284; 73218

== ENCOUNTER → 2025-09-08 00:17 | Outpatient (CLI) | payer BC, SELFPAY ==
--- NOTE | 2025-09-08 09:00 | DI.RAD_ITS ---
Exam(s) XR SACRUM COCCYX EXAM: XR SACRUM COCCYX CLINICAL HISTORY: COCCYX PAIN, M53.3 SACROCOCCYGEAL DISORDERS. TECHNIQUE: 2D digital imaging was performed. COMPARISON: No exams were available for comparison FINDINGS: BONES: No acute fracture is present. No bony destructive lesion is seen. JOINTS: No dislocation present. The right SI joint is unremarkable. The left SI joint is not widened and there is no significant spurring. There is mild sclerosis in the medial left ilium. SOFT TISSUE: Normal. IMPRESSION: No acute abnormality. DATA REPOSITORY: RADIATION DOSE DELIVERED:
== END ==
PROVIDERS: PCP Family Medicine; Visit Provider Family Medicine
DX: M53.3 Sacrococcygeal disorders, not elsewhere classified (principal); M75.41 Impingement syndrome of right shoulder
CPT/HCPCS: 72220

== ENCOUNTER → 2025-09-08 00:19 | Outpatient (CLI) | payer BC, SELFPAY ==
--- NOTE | 2025-09-08 | DI.MRI_ITS ---
Exam(s) MR UPPER JOINT RT WO EXAM: MR UPPER JOINT RT WO CLINICAL HISTORY: IMPINGEMENT SYNDROME RT SHOULDER M75.4 BICIPITAL TENDINITIS M75.21INJURY. TECHNIQUE: Multiplanar multisequence MRI was performed. COMPARISON: Outside plain films 12 August 2025 FINDINGS: BONES: There is no fracture or contusion pattern. JOINTS:The acromioclavicular joint is normal. The glenohumeral joint is normal. TENDONS: Supraspinatus: Unremarkable. Infraspinatus: Unremarkable. Subscapularis: Unremarkable. Teres Minor: Unremarkable. Biceps and Thornton: Unremarkable. MUSCLES: Unremarkable. GLENOID LABRUM: Unremarkable on this noncontrast examination. SOFT TISSUES: Unremarkable. BURSAE: No fluid in the subacromial subdeltoid bursae . IMPRESSION: Unremarkable MRI of the shoulder. DATA REPOSITORY:
== END ==
LOC: DI 00:19
PROVIDERS: Visit Provider Physician Assistant
DX: M75.41 Impingement syndrome of right shoulder (principal); M75.21 Bicipital tendinitis, right shoulder; S46.001A Unspecified injury of muscle(s) and tendon(s) of the rotator cuff of right shoulder, initial encounter
CPT/HCPCS: 73221